=== PATIENT | female | born 2000 | race Two or more races ===

== ENCOUNTER 2023-04-27 05:30 | Inpatient (IN) | payer OTHER ==
[2023-04-28 00:31] VITALS: BMI 50.5
[2023-04-28 01:26] LABS: Hemoglobin 11.2 g/dL (12.0-15.5); Mean Corpuscular HGB CONC 34.3 g/dL (32.0-36.0); Mean Corpuscular Hemoglobin 27.3 pg (27.0-33.0); Mean Corpuscular Volume 79.8 fl (81.6-98.3); Mean Platelet Volume 8.8 fl (7.4-10.4); Platelet Count 332 10x3/uL (150-450); RBC Distribution Width 13.3 % (11.5-14.5); White Blood Cell (WBC) Count 11.3 10x3/uL (3.5-10.5)
[2023-04-28] MEDS ORDERED: Butorphanol Tartrate 1 MG/ML VIAL SLOW IVP PRN (01:27)
[2023-04-28] MEDS ORDERED: Promethazine HCl 25 MG/ML VIAL IM PRN (01:27)
[2023-04-28] MEDS ORDERED: Acetaminophen 500 MG TAB PO PRN (01:27)
[2023-04-28] MEDS ORDERED: Ondansetron PF 4 MG/2 ML Vial IVP PRN (01:27)
[2023-04-28] MEDS ORDERED: Lidocaine 1% (PF) 30 ML VIAL SC PRN (01:27)
[2023-04-28] MEDS ORDERED: fentaNYL 50 mcg/mL 1 mL Vial SLOW IVP PRN (01:27)
[2023-04-28] MEDS ORDERED: hydrALAZINE 20 MG/ML VIAL SLOW IVP PRN (01:27)
[2023-04-28] MEDS ORDERED: NS w/ Oxytocin 30 units 500 ML IV SCH ×3 (01:30)
[2023-04-28] MEDS ORDERED: Penicillin G Potassium 5 MILL.UNITS in Sodium Chloride 0.9% 100 ML IVPB SCH (01:30)
[2023-04-28] MEDS ORDERED: Misoprostol 100 MCG TAB ONE (01:37)
[2023-04-28] MEDS: Lactated Ringer's 1,000 ML IV SCH ×2 (01:42→10:01)
[2023-04-28] MEDS: Misoprostol 100 MCG TAB VAG SCH ×5 (01:43→19:25)
[2023-04-28 01:57] LABS: HBSAg Index 0.19 S/CO (0-0.99); Hep B Surf Ag - L&D Non-Reactive S/CO (NonReactive)
[2023-04-28 01:58] LABS: Syphilis Antibody Nonreactive (Nonreactive); Syphilis Antibody Index 0.06 S/CO (<1.00 Non-Reactive)
[2023-04-28] MEDS: Penicillin G 2.5 MILL.units 2.5 MILL.UNITS in Premix Bag 1 BAG IVPB SCH ×2 (17:34→17:35)
[2023-04-29] MEDS ORDERED: Penicillin G Potassium 5 MILL.UNITS VIAL ONE (03:41)
[2023-04-29] MEDS ORDERED: fentaNYL/Ropivacaine Epidural 100 ML ONE ×2 (07:09→16:56)
[2023-04-29] MEDS ORDERED: Lactated Ringer's 500 ML IV PRN (07:56)
[2023-04-29] MEDS ORDERED: Naloxone HCl 0.4 mg/ml Vial IVP PRN ×2 (07:56)
[2023-04-29] MEDS ORDERED: Moisturizing Cream (Eucerin) 113 GM JAR TOP PRN (07:56)
[2023-04-29] MEDS ORDERED: diphenhydrAMINE 50 MG/ML VIAL IVP PRN (07:56)
[2023-04-29] MEDS ORDERED: Promethazine HCl 25 MG/ML VIAL IM PRN (07:56)
[2023-04-29] MEDS ORDERED: Ondansetron PF 4 MG/2 ML Vial IVP PRN (07:56)
[2023-04-29] MEDS ORDERED: ePHEDrine Sulfate 50 MG/10 ML VIAL SLOW IVP PRN (07:56)
[2023-04-29] MEDS ORDERED: Acetaminophen 325 MG TAB PO PRN (07:56)
[2023-04-29] MEDS ORDERED: Communication Order-Pharmacy FS SCH (08:00)
[2023-04-29] MEDS ORDERED: fentaNYL 2 mcg/Ropivacaine 0.2% Epidural 100 ML CADD EPIDURAL SCH (08:00)
[2023-04-29] MEDS: Penicillin G 2.5 MILL.units 2.5 MILL.UNITS in Premix Bag 1 BAG IVPB SCH ×3 (08:04→18:14)
[2023-04-29] MEDS ORDERED: Bupivacaine 0.25% HCL 30 ML VIAL ONE (18:54)
[2023-04-29] MEDS ORDERED: Bupivacaine PF 0.5% 30 ML VIAL ONE (18:54)
[2023-04-29] MEDS ORDERED: Misoprostol 200 MCG TAB ONE (19:04)
[2023-04-29] MEDS ORDERED: Carboprost 250 MCG/ML AMP ONE (19:04)
[2023-04-30] MEDS ORDERED: Preparation H Ointment 28 GM TUBE PR PRN (00:38)
[2023-04-30] MEDS ORDERED: Milk Of Magnesia 30 ML UDCUP PO PRN (00:38)
[2023-04-30] MEDS ORDERED: Methylergonovine 0.2 MG/ML VIAL IM PRN (00:38)
[2023-04-30] MEDS ORDERED: Measles/Mumps/Rubella 10 MCG/0.5 ML VIAL SC ONE (00:38)
[2023-04-30] MEDS ORDERED: Ondansetron PF 4 MG/2 ML Vial IVP PRN (00:38)
[2023-04-30] MEDS ORDERED: diphenhydrAMINE 25 MG CAP PO PRN (00:38)
[2023-04-30] MEDS ORDERED: Zolpidem Tartrate 5 MG TAB PO PRN (00:38)
[2023-04-30] MEDS ORDERED: Benzocaine-Menthol 82.5 ML CAN TOP PRN (00:38)
[2023-04-30] MEDS ORDERED: hydrALAZINE 20 MG/ML VIAL SLOW IVP PRN (00:38)
[2023-04-30] MEDS ORDERED: Bisacodyl 10 MG SUPP PR PRN (00:38)
[2023-04-30] MEDS ORDERED: Lanolin Ointment 7 GM TUBE TOP PRN (00:38)
[2023-04-30] MEDS ORDERED: Misoprostol 200 MCG TAB VAG PRN (00:38)
[2023-04-30] MEDS ORDERED: Varicella virus, LIVE 0.5 ML VIAL SC ONE (00:38)
[2023-04-30] MEDS ORDERED: HYDROcodone/Acetaminophen 5/325 mg Tablet PO PRN (00:38)
[2023-04-30] MEDS ORDERED: NS w/ Oxytocin 30 units 500 ML IV SCH (00:38)
[2023-04-30] MEDS ORDERED: Boostrix 0.5 ML (Tdap) VIAL (>/=7 yrs of age) IM ONE (00:38)
[2023-04-30] MEDS ORDERED: Promethazine HCl 25 MG/ML VIAL IM PRN (00:38)
[2023-04-30] MEDS ORDERED: Docusate 100 MG CAP PO SCH (00:45)
[2023-04-30] MEDS ORDERED: Ibuprofen 800 MG TAB PO SCH (01:00)
[2023-04-30] MEDS: HYDROcodone/Acetaminophen 5/325 mg Tablet PO PRN ×2 (01:43→05:54)
[2023-04-30 04:57] LABS: #Eosinphils 0.1 10x3/uL (0.0-0.5); #Monocytes 0.9 10x3/uL (0.0-1.1); #Neutrophils 15.3 10x3/uL (1.5-8.4); %Basophils 0.2 % (0.0-2.0); %Eosinophils 0.5 % (0.0-6.0); %Lymphocytes 8.3 % (18.0-47.0); %Monocytes 5.1 % (0.0-10.0); %Neutrophils 85.3 % (40.0-75.0); Hemoglobin 10.6 g/dL (12.0-15.5); Mean Corpuscular HGB CONC 33.9 g/dL (32.0-36.0); Mean Corpuscular Hemoglobin 27.5 pg (27.0-33.0); Mean Corpuscular Volume 81.1 fl (81.6-98.3); Mean Platelet Volume 8.8 fl (7.4-10.4); Platelet Count 278 10x3/uL (150-450); RBC Distribution Width 13.2 % (11.5-14.5); Red Blood Cell (RBC) Count 3.86 10x6/uL (3.90-5.03)
[2023-04-30] MEDS: Ibuprofen 800 MG TAB PO SCH ×3 (05:53→21:50)
[2023-04-30] MEDS: Ferrous Sulfate 325 MG TAB PO SCH ×2 (07:28→17:24)
[2023-04-30] MEDS: Lactated Ringer's 1,000 ML IV SCH (07:29)
[2023-04-30] MEDS: Misoprostol 100 MCG TAB VAG SCH ×3 (07:35→07:38)
[2023-04-30] MEDS: Penicillin G 2.5 MILL.units 2.5 MILL.UNITS in Premix Bag 1 BAG IVPB SCH ×2 (07:36→07:37)
[2023-04-30] MEDS: Prenatal Vitamin 1 TAB PO SCH (08:05)
[2023-04-30] MEDS: Docusate 100 MG CAP PO SCH ×2 (08:06→21:50)
[2023-05-01] MEDS: HYDROcodone/Acetaminophen 5/325 mg Tablet PO PRN (04:43)
[2023-05-01] MEDS: Ibuprofen 800 MG TAB PO SCH ×2 (06:20→14:22)
[2023-05-01 07:35] VITALS: BP 131/67; TEMP 98.4
[2023-05-01] MEDS: Ferrous Sulfate 325 MG TAB PO SCH ×2 (07:50→15:16)
[2023-05-01] MEDS: Docusate 100 MG CAP PO SCH (08:15)
[2023-05-01] MEDS: Prenatal Vitamin 1 TAB PO SCH (08:15)
== END 2023-05-01 18:30 | disposition home or self-care (01) | DRG 807 ==
LOC: UNDOADMIN 23:57 → CSHLD 23:57 → CSHPP 04-30 00:51
PROVIDERS: ADMIT Obstetrics & Gynecology; ATTEND Obstetrics & Gynecology
PROC: 10D07Z6 Extraction of Products of Conception, Vacuum, Via Natural or Artificial Opening (ICD-10-PCS; principal; 2023-04-29)
DX: O10.92 Unspecified pre-existing hypertension complicating childbirth (principal); Z37.0 Single live birth; Z3A.38 38 weeks gestation of pregnancy; E66.9 Obesity, unspecified; O99.214 Obesity complicating childbirth; O32.4XX0 Maternal care for high head at term, not applicable or unspecified
CPT/HCPCS: 36415; 51702; 85025; 85027; 86780; 86850; 86900; 86901; 87340; J2540; J2590; J3490; J7120; S0020